=== PATIENT | male | born 1995 | race Caucasian/White ===

== ENCOUNTER 2021-03-19 14:42 | Emergency (ER) | payer SELFPAY | END 2021-03-19 16:47 | disposition home or self-care (01) | LOC: ER1 14:42 | DX: R07.9 Chest pain, unspecified (principal) | CPT/HCPCS: 71046; 93005; 99285 ==

== ENCOUNTER 2021-10-10 00:50 | Emergency (ER) | payer SELFPAY | END 2021-10-10 04:39 | disposition home or self-care (01) | LOC: ER1 00:50 | DX: U07.1 COVID-19 (principal); Z95.1 Presence of aortocoronary bypass graft | CPT/HCPCS: 71045; 99285; U0002 ==